=== PATIENT | male | born 1985 | race Caucasian/White ===

== ENCOUNTER 2017-12-05 18:09 | Emergency (ER) | payer OTHER, SELFPAY ==
[2017-12-05 18:19] VITALS: BP 128/91; PULSE 94; RESP 18; TEMP 37.2; O2SAT 98; BMI 19.8
--- NOTE | 2017-12-05 18:19 | ED.SKABFB ---
HPI - Skin/Abscess/Foreign Bdy <Michelle La PA-C - Last Filed: 12/05/17 20:45> General Chief complaint: Skin/Abscess/Foreign Body Stated complaint: CHOCKING ON STEAK STILL ABLE TO BEATH Time Seen by Provider: 12/05/17 18:19 Source: patient Mode of arrival: ambulatory Limitations: no limitations History of Present Illness HPI narrative: This 32-year-old male has a history of lodged food boluses previously. He states that this has happened most often with steak and mini wheats cereal. He states that he had a barium swallow due to this and no mechanical problem was found. He does not have a history of stricture. He took a large bite of steak tonight and felt this get stuck. He states that when this happens, he can dislodge the food bolus by vomiting, but tonight was not able and comes in here. He states he can feel this in the middle of his neck where he usually does. He is not short of breath. He is spitting but able to manage secretions. He denies other new symptoms Related Data Home Medications Medication Instructions Recorded Confirmed No Known Home Medications 12/05/17 12/05/17 Allergies Allergy/AdvReac Type Severity Reaction Status Date / Time No Known Drug Allergies Allergy Verified 12/05/17 18:50 Review of Systems <Michelle La PA-C - Last Filed: 12/05/17 20:45> Review of Systems All systems reviewed & are unremarkable except as noted in HPI and below Exam <Michelle La PA-C - Last Filed: 12/05/17 20:45> Narrative Exam Narrative: GENERAL APPEARANCE: Patient sitting comfortably, in no distress. HEENT: PERRL, EOMI, normal oropharynx NECK: Supple, no masses, trachea midline with normal swallow LUNGS: Clear to auscultation bilaterally. HEART: Rate and rhythm regular without murmur, normal S1 and S2, no S3 or S4. EXTREMITIES: No cyanosis, no edema Initial Vital Signs Initial Vital Signs: Vital Signs Temperature 99.0 F 12/05/17 18:19 Pulse Rate 94 H 12/05/17 18:19 Respiratory Rate 18 12/05/17 18:19 Blood Pressure 128/91 H 12/05/17 18:19 Pulse Oximetry 98 12/05/17 18:19 <Bernard Vines MD - Last Filed: 12/05/17 23:24> Initial Vital Signs Initial Vital Signs: Vital Signs Temperature 99.0 F 12/05/17 18:19 Pulse Rate 94 H 12/05/17 18:19 Respiratory Rate 18 12/05/17 18:19 Blood Pressure 128/91 H 12/05/17 18:19 Pulse Oximetry 98 12/05/17 18:19 Course <Michelle La PA-C - Last Filed: 12/05/17 20:45> Additional Information: Patient was able to relieve the obstruction after drinking a little warm soda. He felt normal at discharge and tolerated pudding and fluids without problems. Agreed to return if any recurrent symptoms again Orders Ordered: Discontinued Medications Glucagon (Glucagen) 1 mg IV NOW ONE Stop: 12/05/17 18:28 Last Admin: 12/05/17 18:51 Dose: Vital Signs - 8 hr 12/05/17 18:19 12/05/17 19:06 Temperature 99.0 F Pulse Rate 94 H 78 Respiratory Rate 18 16 Blood Pressure 128/91 H 121/79 Pulse Oximetry 98 99 <Bernard Vines MD - Last Filed: 12/05/17 23:24> Orders Ordered: Discontinued Medications Glucagon (Glucagen) 1 mg IV NOW ONE Stop: 12/05/17 18:28 Last Admin: 12/05/17 18:51 Dose: Vital Signs - 8 hr 12/05/17 18:19 12/05/17 19:06 Temperature 99.0 F Pulse Rate 94 H 78 Respiratory Rate 18 16 Blood Pressure 128/91 H 121/79 Pulse Oximetry 98 99 Discharge Plan Departure Patient Disposition: Home Clinical Impression: Obstruction of esophagus due to food impaction Discharge Date/Time: 12/05/17 19:06 Interventions: ED Discharge Assessment Last Done: 12/05/17 19:06 Instructions: Steakhouse Syndrome Activity Restrictions/Additional Instructions: please have fluids and eat soft foods this evening. You can use some liquid antacid such as Maalox if you have discomfort. Return if you have any acutely worsening symptoms again Prescriptions: No Action No Known Home Medications RF: 0 Referrals: [facility] [Provider Group] <Bernard Vines MD - Last Filed: 12/05/17 23:24> Cosign ED Attending Cosignature Attestation: I was present in the ER at the time of this patient's evaluation. I was available for verbal consultation or to see the patient directly if need be. I agree with the assessment and treatment plan.
--- NOTE | 2017-12-05 18:47 | PC.NURSE ---
Gave patient per doctor's request some vanilla pudding to check if still feels object in throat
--- NOTE | 2017-12-05 18:48 | PC.NURSE ---
pt was given some warm soda in addition to warm water. he was able to pass the food bolus while the provider and I were in the room. no need for the glucagon
[2017-12-05 19:06] VITALS: BP 121/79; PULSE 78; RESP 16; O2SAT 99
== END 2017-12-05 19:06 | disposition home or self-care (01) ==
PROVIDERS: Emergency Provider Internal Medicine
DX: K22.2 Esophageal obstruction (principal); T18.128A Food in esophagus causing other injury, initial encounter
CPT/HCPCS: 99282; 99283